=== PATIENT | female | born 1965 | race Caucasian/White ===

== ENCOUNTER 2016-07-20 11:36 | Emergency (ER) | payer MEDICAID ==
[~2016-07-20 11:36] MED LIST: Amoxicillin 500 MG Cap PO ONE
[2016-07-20 11:38] VITALS: BP 143/87
[2016-07-20] MEDS ORDERED: Amoxicillin 500 MG Cap PO ONE (11:57)
[2016-07-20] MEDS ORDERED: Take Home: Amoxicillin 500 MG Cap, 2 Cap Pack PO ONE (11:57)
--- NOTE | 2016-07-20 11:59 | EDM.PDOC ---
ED HPI GENERAL MEDICAL PROBLEM - General Chief Complaint: General Stated Complaint: congestion Time Seen by Provider: 07/20/16 11:38 Source of Information: Reports: Patient History Limitations: Reports: No limitations - History of Present Illness INITIAL COMMENTS - FREE TEXT/NARRATIVE: my General medical History and physical: History of present illness: [Patient comes to the emergency room complaining of left sided facial pain and dental pain. Saw her Dr. in [place] approx 3 days ago and was prescribed metronidazole for a sinus infection. She's taken 3 times daily for the past several days and has not noted improvement in her symptoms. She has a dry hacking cough. She is congested in her sinuses and has a lot of drainage rebound the back of her throat. She is unable to blow out the drainage in her nose. She had tooth number 3 extracted about 3 weeks ago. She continues to have pain to this area. Pain radiates from her jaw area to her left ear. She has not had wheezing or productive cough. No sputum production. No pain in her chest or difficulty breathing. No wheezing. No chest pain. She denies abdominal pain and vomiting. She is also been taking Benadryl, NyQuil and Afrin nasal spray.] Review of Systems: As per history of present illness and below otherwise all systems reviewed and negative. Past medical history: As per history of present illness and as reviewed below otherwise noncontributory. Surgical history: As per history of present illness and is reviewed below other song noncontributory. Social history: No reported history of drug or alcohol abuse. Family history: As per history of present illness and is reviewed below otherwise noncontributory. Physical exam: HEENT: Atraumatic, normocephalic. TMs are pearly padilla without erythema. Mild effusions appreciated bilaterally. Nares are boggy and erythematous. Tender with palpation over her left paranasal sinuses. Oral mucous membranes are pink and moist no tonsillar swelling erythema or exudate. Moderate amount of white to yellow drainage in throat. neck supple, nontender. Lungs: Clear to auscultation, breath sounds equal bilaterally. No wheezing crackles or rales. Heart: S1-S2, regular, negative for clicks, rubs, or JVD. Abdomen: Soft, nondistended, nontender. Negative for masses or hepatosplenomegaly. Negative for costovertebral tenderness. Pelvis: Stable, nontender. Genitourinary: Deferred. Rectal: Deferred. Extremities atraumatic, no swelling, cyanosis or edema. for cords or calf pain. Neurovascular unremarkable. Neuro: Awake, alert, oriented. Exam nonfocal. Impression: [Acute sinusitis] Plan: [she is given 1 tablet of amoxicillin 500mg in ER, and given a take home pack to take later today. Rx given for loratadine 10mg (#30) sipo qd 0 RF's, and amoxicillin 500mg (#18) si po TID 0 RF's. Excused from work tomorrow. May return without restrictions on 07/22.She is in agreement w/ plans. All questions are answered and concerns are addressed. ] Definitive disposition and diagnosis is appropriate pending reevaluation and review of above. - Related Data Allergies Allergy/AdvReac Type Severity Reaction Status Date / Time No Known Allergies Allergy Verified 07/20/16 11:40 Past Medical History Psychiatric History: Reports: Depression - Past Surgical History HEENT Surgical History: Reports: Tonsillectomy GI Surgical History: Reports: Other (see below) Other GI Surgeries/Procedures: gastric bypass Female Surgical History: Reports: Hysterectomy Social & Family History - Tobacco Use Smoking Status *Q: Never Smoker - Recreational Drug Use Recreational Drug Use: No ED ROS GENERAL - Review of Systems Review Of Systems: ROS reveals no pertinent complaints other than HPI. ED EXAM, GENERAL - Physical Exam Exam: See Below Course - Vital Signs Last Recorded V/S: Last Vital Signs Temp 98.5 F 07/20/16 11:36 Pulse 94 07/20/16 11:36 Resp 16 07/20/16 11:36 BP 143/87 H 07/20/16 11:36 Pulse Ox 95 07/20/16 11:36 - Orders/Labs/Meds Meds: Medications Discontinued Medications Generic Name Dose Route Start Last Admin Trade Name Freq PRN Reason Stop Dose Admin Amoxicillin 500 mg 07/20/16 11:57 07/20/16 12:08 Amoxil PO 07/20/16 11:58 500 mg ONETIME ONE Administration Amoxicillin 1 packet 07/20/16 11:57 07/20/16 12:08 Take Home: Amoxicillin 500 Mg, 2 Cap Pack PO 07/20/16 11:58 1 packet ONETIME ONE Administration Departure - Departure Time of Disposition: 11:55 Disposition: Home, Self-Care 01 Condition: good Clinical Impression: Acute sinusitis Qualifiers: Sinusitis location: unspecified location Recurrence: not specified as recurrent Qualified Code(s): J01.90 - Acute sinusitis, unspecified Referrals: PCP,Unknown [Primary Care Provider] - Forms: ED Department Discharge Additional Instructions: My general discharge The following information is given to patients seen in the emergency department who are being discharged home. This information is to outline your options for follow-up care and provides all patient seen in our emergency department with a follow-up referral. The need for follow-up, as well as the timing and circumstances, are variable depending upon the specifics of each emergency department visit. If you don't have a primary care physician on staff, we will provide you with a referral. We always advise to contact your personal physician following an emergency department visit to inform them of the circumstances of the visit and for follow-up with them and/or the need for any referrals to a consulting specialist. The emergency department will also refer you to a specialist when appropriate. This referral assures that you have the opportunity for follow-up care with a specialist. All of these measures are taken in an effort to provide you with optimal care, which includes your follow-up. Under all circumstances we always encourage you to contact your private physician who remains a resource for coordinating your care. When calling for follow-up care, please make the office aware that this follow-up is from your recent emergency room visit. If for any reason you are refused follow-up please contact the [facility] emergency department at and ask to speak to the emergency department nurse. Followup with your primary care provider in 48-72 hours. Stop taking metronidazole and start amoxicillin instead. You were given several tablets to get you through today. take as directed. Mucinex will help thin your nasal secretions making them easier to blowout rather than swallow. This is available [id number] Delsym or Robitussin will help with cough. This is available [id number] Your given a prescription for an antibiotic and antihistamine. Take these to your pharmacy and have them filled tomorrow. Push fluids and get plenty of rest.
== END 2016-07-20 12:15 | disposition home or self-care (01) ==
LOC: CC.ED 11:36
DX: J01.90 Acute sinusitis, unspecified (principal); F32.9 Major depressive disorder, single episode, unspecified; Z98.890 Other specified postprocedural states; Z90.710 Acquired absence of both cervix and uterus
CPT/HCPCS: 99282; A9270